=== PATIENT | female | born 1965 | race Caucasian/White ===

== ENCOUNTER 2023-06-25 05:24 | Day surgery (SDC) | payer MEDICAID ==
[2023-06-25 05:58] LABS: HEMATOCRIT 42.8 % (34.3-46.0); HEMOGLOBIN 15.1 g/dL (11.2-15.5); MEAN CORPUSCULAR HEMOGLOBIN 29.2 pg (31.6-35.5); MEAN CORPUSCULAR HGB CONC 35.3 g/dL (31.6-35.5); MEAN CORPUSCULAR VOLUME 82.8 fL (81.4-99.0); RED BLOOD CELL COUNT 5.17 M/uL (3.77-5.24); WHITE BLOOD CELL COUNT,WBC 9.9 K/uL (3.2-11.0)
[2023-06-25 06:17] LABS: A/G RATIO 0.8 (1.2-2.2); ALANINE AMINOTRANSFERASE,ALT 49 U/L (12-78); ALBUMIN 3.4 g/dL (3.4-5.0); ALKALINE PHOSPHATASE 195 U/L (46-116); ASPARTATE AMNIOTRANSFERASE,AST 33 U/L (15-37); BILIRUBIN TOTAL 0.8 mg/dL (0.2-1.0); BLOOD UREA NITROGEN,BUN 21 mg/dL (7-18); CALCIUM 8.9 mg/dL (8.5-10.1); CARBON DIOXIDE,CO2 24 mmol/L (21-32); CHLORIDE,CL 99 mmol/L (100-108); CREATININE 0.9 mg/dL (0.6-1.0); EST CRCL DRUG DOSING (CG) 61.63 mL/min; ESTIMATED GFR 76 mL/min (>60); GLUCOSE RANDOM 364 mg/dL (74-106); POTASSIUM,K 3.8 mmol/L (3.6-5.2); PROTEIN TOTAL,TP 7.8 g/dL (6.4-8.2); SODIUM,NA 135 mmol/L (140-148)
[2023-06-25 06:23] LABS: ANION GAP 15.8 mmol/L (5.0-14.0)
[2023-06-25] MEDS ORDERED: fentaNYL 250 MCG/5 ML SDV ONE ×2 (07:19→08:01)
[2023-06-25] MEDS: metroNIDAZOLE/Normal Saline 500 MG in Premix Bag 1 BAG IV ONE (07:40)
[2023-06-25] MEDS: Indocyanine Green 25 MG SDV IV ONE (07:44)
[2023-06-25] MEDS ORDERED: fentaNYL 100 MCG/2 ML SDV IVPUSH PRN ×3 (07:46)
[2023-06-25] MEDS ORDERED: Docusate Sodium 100 MG Cap PO PRN (07:46)
[2023-06-25] MEDS ORDERED: Benzocaine/Cetylpyridinium/Menthol Lozenge MUCMEM PRN (07:46)
[2023-06-25] MEDS ORDERED: Acetaminophen/HYDROcodone 325-5 MG Tab PO PRN (07:46)
[2023-06-25] MEDS ORDERED: Succinylcholine 200 MG/10 ML MDV ONE (08:01)
[2023-06-25] MEDS ORDERED: Glycopyrrolate 0.2 MG/ML 5 ML MDV ONE (08:01)
[2023-06-25] MEDS ORDERED: Propofol 200 MG/20 ML SDV ONE (08:01)
[2023-06-25] MEDS ORDERED: Ondansetron 4 MG/2 ML SDV ONE (08:01)
[2023-06-25] MEDS ORDERED: Dexamethasone 4 MG/ML SDV ONE (08:01)
[2023-06-25] MEDS ORDERED: Rocuronium 50 MG/5 ML Vial ONE (08:01)
[2023-06-25] MEDS ORDERED: Neostigmine Methylsulfate 10 MG/10 ML MDV ONE (08:01)
[2023-06-25] MEDS: Lidocaine 1% with EPINEPHrine 1:100,000 50 ML MDV ONE (08:37)
[2023-06-25] MEDS: Bupivacaine 0.5% 50 ML MDV ONE (08:37)
[2023-06-25] MEDS ORDERED: Scopalamine 1mg/3day Transdermal Patch TOP SCH (09:00)
[2023-06-25] MEDS ORDERED: fentaNYL 100 MCG/2 ML SDV ONE (09:30)
[2023-06-25] MEDS ORDERED: Lactated Ringers 1,000 ML ONE (09:34)
[2023-06-25] MEDS: CHLOROPROCAINE INJECT ONE (10:00)
[2023-06-25] MEDS ORDERED: Naloxone 0.4 MG/ML SDV ONE (10:09)
[2023-06-25] MEDS: Sodium Chloride 0.9% 1,000 ML IV SCH (10:24)
[2023-06-25] MEDS: fentaNYL 50 MCG/ML SDV IVPUSH ONE (10:41)
== END 2023-06-25 13:22 | disposition home or self-care (01) ==
LOC: JP.SDS 05:24
PROVIDERS: ATTEND Surgery
DX: K80.10 Calculus of gallbladder with chronic cholecystitis without obstruction (principal); K82.8 Other specified diseases of gallbladder; E11.69 Type 2 diabetes mellitus with other specified complication; I10 Essential (primary) hypertension; Z79.899 Other long term (current) drug therapy; Z88.0 Allergy status to penicillin; Z88.1 Allergy status to other antibiotic agents; Z88.8 Allergy status to other drugs, medicaments and biological substances
CPT/HCPCS: 36415; 47562; 80053; 85027; 87070; 87075; 87205; 88304; J0330; J1100; J1836; J2310; J2405; J2704; J2710; J3010; J3490; J7030; J7120